=== PATIENT | female | born 1960 | race Hispanic/Latino ===

== ENCOUNTER 2017-07-21 15:52 | Emergency (ER) | payer BC ==
[~2017-07-21] VITALS: Ht 147.3 cm; Wt 61.0 kg
[~2017-07-21 15:52] MED LIST: ATENOLOL100 MG PO; Levaquin PO; NORTRIPTYLINE H10 MG PO; PAXIL10 MG PO; SIMVASTATIN10 MG PO; TENORMIN25 MG PO; [UNRECOGNIZED DRUG - REMARK]
[2017-07-21 16:50] LABS: HEMATOCRIT 36.2 % (36.0-46.0); MCH 29.7 PG (29.0-34.0); MCHC 32.9 G/DL (30.0-36.0); MCV 90.3 FL (83-99); MEAN PLAT.VOLUME 11.1 uM^3 (9.5-12.4); PLATELET COUNT 180 K/uL (156-360); RBC DIS.WIDTH-CV 13.2 % (11.8-14.6); RBC DIS.WIDTH-SD 43.4 % (39-53); RED BLOOD COUNT 4.01 M/uL (3.80-5.20); WHITE BLOOD COUNT 6.7 K/uL (4.1-10.2)
[2017-07-21 17:02] LABS: CHLORIDE 109 mEq/L (99-109); POTASSIUM 3.5 mEq/L (3.7-5.4); SODIUM 140 mEq/L (136-147)
[2017-07-21 17:03] LABS: GLUCOSE 107 mg/dL (70-99)
[2017-07-21 17:05] LABS: ANION GAP 6 MEQ/L (2-14)
[2017-07-21 17:07] LABS: GFR ESTIMATE (CALCULATED) > 59 mL/min/
[2017-07-21 17:08] LABS: UREA NITROGEN (BUN) 18 mg/dL (9-23)
[2017-07-21 18:02] LABS: TOTAL BILIRUBIN 0.7 mg/dL (0.0-1.0)
[2017-07-21 18:03] LABS: ALKALINE PHOSPHATASE 112 IU/L (3-129)
[2017-07-21 18:06] LABS: DIRECT BILIRUBIN 0.2 mg/dL (0.0-0.3)
[2017-07-21 18:07] LABS: LIPASE 10 U/L (1.0-51.0)
[2017-07-21 18:28] LABS: ADD MIUA? YES; BILIRUBIN NEGATIVE; BLOOD NEGATIVE; COLOR YELLOW ((YELLOW)); GLUCOSE (STRIP) NEGATIVE; KETONES NEGATIVE; LEUKOCYTES NEGATIVE; NITRITE NEGATIVE; PROTEIN (STRIP) NEGATIVE; SPECIFIC GRAVITY 1.029 (1.000-1.030)
[2017-07-21 18:34] LABS: BACTERIA NONE SEEN /HPF; EPITHELIAL CELLS RARE /HPF; HYALINE CASTS 0-5 /LPF; MUCUS 1+ /LPF; RED BLOOD CELLS 0-5 /HPF (0-5); UCUL ADDED? NO; UNCLASSIFIED CRYSTALS 1+ /HPF; WHITE BLOOD CELLS 0-5 /HPF (0-5)
[2017-07-21] MEDS ORDERED: ULTRACET1 TABLET PO (22:18)
[2017-07-21] MEDS ORDERED: CIPRO500 MG PO (22:18)
[2017-07-21] MEDS ORDERED: FLAGYL500 MG PO (22:18)
[2017-07-21 22:55] VITALS: BP 128/67
== END 2017-07-21 22:56 | disposition home or self-care (01) ==
LOC: EME 15:52
DX: K57.32 Diverticulitis of large intestine without perforation or abscess without bleeding (principal); E78.5 Hyperlipidemia, unspecified; I10 Essential (primary) hypertension; J45.909 Unspecified asthma, uncomplicated; Z88.0 Allergy status to penicillin
CPT/HCPCS: 74177; 80048; 80076; 81003; 83690; 85027; 99281; 99284; J7030